=== PATIENT | male | born 1985 | race Caucasian/White ===

== ENCOUNTER 2019-06-16 21:04 | Emergency (ER) | payer OTHER ==
[~2019-06-16] VITALS: Ht 177.8 cm; Wt 83.9 kg
[2019-06-16] MEDS ORDERED: PREDNISONE 20 M20 MG PO (22:40)
[2019-06-16] MEDS ORDERED: ZANTAC 150MG T150 MG PO (22:40)
[2019-06-16] MEDS ORDERED: ZYRTEC-D TABLE1 EAC1 PO (22:40)
[2019-06-16 22:52] VITALS: BP 118/69
== END 2019-06-16 22:52 | disposition home or self-care (01) ==
LOC: ER 21:04
DX: L27.0 Generalized skin eruption due to drugs and medicaments taken internally (principal); T36.0X5A Adverse effect of penicillins, initial encounter; J06.9 Acute upper respiratory infection, unspecified; H92.09 Otalgia, unspecified ear; F41.9 Anxiety disorder, unspecified; Y92.89 Other specified places as the place of occurrence of the external cause

== ENCOUNTER 2019-10-31 22:03 | Emergency (ER) | payer OTHER ==
[~2019-10-31] VITALS: Ht 175.3 cm; Wt 83.9 kg
[~2019-10-31 22:03] MED LIST: PREDNISONE 20 M20 MG PO; ZANTAC 150MG T150 MG PO; ZYRTEC-D TABLE1 EAC1 PO
[2019-10-31] MEDS ORDERED: NOHOMEMEDICATIONS (23:01)
[2019-11-01 00:53] LABS: ABSOLUTE NEUTROPHILS 12.2 thou/uL (1.4-8.2); BASOPHILS 0.1 % (0.0-2.0); EOSINOPHILS 0.1 % (0.0-3.0); HEMOGLOBIN 14.8 gm/dL (14.0-18.0); MCH 29.5 pg (26.0-34.0); MCHC 34.3 g/dL (28.0-37.0); MONOCYTES 5.5 % (1.0-8.0); PLATELET COUNT 144 thou/uL (150-400); POLYS 82.3 % (36.0-66.0); RBC 5.01 mil/uL (4.50-6.00); RDW 13.1 % (10.5-14.5); WBC 14.8 thou/uL (4.0-11.0)
[2019-11-01 01:02] LABS: CALCIUM 9.1 mg/dL (8.5-10.1); CREATININE 1.1 mg/dL (0.7-1.3); POTASSIUM 3.4 mmol/L (3.5-5.1)
[2019-11-01 01:07] LABS: PROTIME 10.7 Seconds (9.3-11.4)
[2019-11-01] MEDS ORDERED: IBUPROFEN 600600 M1 PO (01:35)
[2019-11-01 01:42] VITALS: BP 116/57
--- NOTE | 2019-11-01 08:22 | EKG ---
[facility] [place] [address] ELECTROCARDIOGRAM REPORT Name: ELROY BRANDT Room #: DEP [facility]#: [id number] Admission: 10/31/19 Attend Phys: Discharge: 11/01/19 Date of : 87 Report #: [id number] THIS REPORT FOR: cc: ENDER - Darlene family physician/PCP ENDER - Darlene family physician/PCP Sandeep Melo MD [facility] THIS REPORT FOR: //name// [facility] ED Test Date: 2019-10-31 Test Time: 23:08:46 Pat Name: ELROY BRANDT Department: Room: Gender: Direct Marketing Specialist: Anisa GAMBLE RN : 1985 Requested By: Ken Kauffman Order Number: [id number] MD: Sandeep Melo Measurements Intervals Sebastian Rate: 100 P: 38 CA: 158 QRS: 82 QRSD: 94 T: 36 QT: 317 QTc: 409 Interpretive Statements Sinus tachycardia Otherwise no significant abnormality No previous ECG available for comparison Electronically Signed On 11-01-2019 8:21:38 CDT by Sandeep Melo [email or web address] <ELECTRONICALLY SIGNED> By: Sandeep Melo MD, FACC 11/01/1921 07 Sandeep Melo MD, [facility] /EPI
== END 2019-11-01 01:55 | disposition home or self-care (01) ==
LOC: ER 22:03
PROVIDERS: Emergency Medicine
DX: J02.0 Streptococcal pharyngitis (principal); R42 Dizziness and giddiness